=== PATIENT | female | born 1955 | race Caucasian/White ===

== ENCOUNTER 2022-03-07 20:13 | Emergency (ER) | payer BC ==
[2022-03-07 20:46] VITALS: BP 158/79; PULSE 89; RESP 18; TEMP 97.8; BMI 22.1
[2022-03-07] MEDS ORDERED: DIPHTH,PERTUSS(ACELL),TET 0.5 ML DISP.SYRIN IM ONE ×2 (20:47→21:16)
[2022-03-07] MEDS ORDERED: NAPROXEN 250 MG TABLET PO ONE (21:34)
[2022-03-07] MEDS ORDERED: NAPROXEN 250 MG TABLET ONE (21:35)
== END 2022-03-07 21:40 | disposition home or self-care (01) ==
LOC: FER 20:13
PROC: 3E0234Z Introduction of Serum, Toxoid and Vaccine into Muscle, Percutaneous Approach (ICD-10-PCS; principal; 2022-03-07)
DX: S63.501A Unspecified sprain of right wrist, initial encounter (principal); W01.0XXA Fall on same level from slipping, tripping and stumbling without subsequent striking against object, initial encounter
CPT/HCPCS: 73110-TC-RT-FY; 90715; 99283-25